=== PATIENT | female | born 1945 | race Two or more races ===

== ENCOUNTER 2017-03-19 09:31 | Day surgery (SDC) | payer MEDICARE, OTHER ==
--- NOTE | 2017-03-15 09:52 | Pre-Procedure Note/Attestation ---
Pre-Procedure Note/Attestation Complete Prior to Procedure Planned Procedure: bilateral Procedure Narrative: 1- Ptosis correction upper lids. 2- Entropion correction upper lids. 3-Blepharoplasty uppers lids. Indications for Procedure Pre-Operative Diagnosis: 1- Blepharoptosis upper lids 2-Entropion upper lids. 3-Blepharochalasis upper lids. Attestation I attest that I discussed the nature of the procedure; its benefits; risks and complications; and alternatives (and the risks and benefits of such alternatives ), prior to the procedure, with the patient (or the patient's legal accounts receivable representative). I attest that, if there was a reasonable possibility of needing a blood transfusion, the patient (or the patient's legal accounts receivable representative) was given the [facility] standardized written summary, pursuant to the Marvin Malachi Blood Safety Act ([place] Health and Safety Code # 1645, as amended). I attest that I re-evaluated the patient just prior to the surgery and that there has been no change in the patient's H&P, except as documented below: JOEY DURAND Mar 15, 2017 09:52
[~2017-03-19] VITALS: Ht 152.4 cm; Wt 68.0 kg
[2017-03-19] VITALS (9 sets, daily range): BP systolic 124–149; BP diastolic 71–85
[~2017-03-19 09:31] MED LIST: Akten 3.5% 1ml Btl BOTH EYES ONE; CALCIUM500 M2 PO; FISH OIL300 M1 PO; GLUCOSAMINE1000 M1 PO; Lidocaine 2% 20mg/ml/Epi 0.005mg/ml 20ml vial ONE; Maxitrol Opth Oint 3.5gm BOTH EYES ONE; NKM; Povidone-Iodine 5% opth solution ONE; VITAMIN B COMP1 EAC5 PO
[2017-03-19] MEDS ORDERED: Akten 3.5% 1ml Btl ONE (09:35)
[2017-03-19] MEDS ORDERED: MOVE FREE JOIN1 EACH PO (10:14)
[2017-03-19] MEDS ORDERED: VIT D PO (10:16)
[2017-03-19] MEDS ORDERED: VIT C PO (10:17)
[2017-03-19] MEDS ORDERED: LR 1000ml ONE (10:30)
[2017-03-19] MEDS ORDERED: Sterile Water Irrig 1000ml IRRIG ONE (10:30)
[2017-03-19] MEDS ORDERED: Midazolam 2mg/2ml Inj ONE (10:30)
[2017-03-19] MEDS ORDERED: NS Irrig 1000ml ONE (10:30)
[2017-03-19] MEDS ORDERED: fentaNYL 100 mcg/2 mL IV ONE (10:30)
[2017-03-19] MEDS ORDERED: LR 1000ml 1,000 ML IVLG SCH (10:46)
--- NOTE | 2017-03-19 10:54 | Anethesia Preoperative Eval ---
Anesthesia Pre-op PMH/ROS General Date of Evaluation: Mar 19, 2017 Time of Evaluation: 10:22 Anesthesiologist: Darion ASA Score: ASA 2 Mallampati Score Class I : Soft palate, uvula, fauces, pillars visible Class II: Soft palate, uvula, fauces visible Class III: Soft palate, base of uvula visible Class IV: Only hard plate visible Mallampati Classification: Class II Surgeon: Elysia Diagnosis: Bilateral ptosis Surgical Procedure: Bilateral upper Family History: no anesthesia problems Allergies: Coded Allergies: No Known Allergies (Unverified , 03/09/16) Medications: see eMAR Past Medical History Cardiovascular: Denies: HTN, CAD, PR, valve dz, arrhythmia, other Pulmonary: Denies: asthma, COPD, TEE, other Gastrointestinal/Genitourinary: Denies: GERD, CRI, ESRD, other Neurologic/Psychiatric: Denies: dementia, CVA, depression/anxiety, TIA, other Endocrine: Denies: DM, hypothyroidism, steroids, other HEENT: Denies: cataract (L), cataract (R), glaucoma, EMMONAK (L), EMMONAK (R), other Hematology/Immune: Denies: anemia, DVT, bleeding disorder, other Musculoskeletal/Integumentary: Denies: OA, RA, DJD, DDD, edema, other Other: obesity - Moderate PMH Narrative: Mild/moderate obesity PSxH Narrative: Bilateral cataract extraction, JILLIAN Anesthesia Pre-op Phys. Exam Physician Exam Last Vital Signs Date Time Temp Pulse Resp B/P (MAP) Pulse Ox O2 Delivery O2 Flow Rate FiO2 03/19/17 09:57 98.2 85 20 149/79 96 Room Air Constitutional: NAD Neurologic: CN 2-12 intact Cardiovascular: RRR, no M/R/G Respiratory: CTA Gastrointestinal: S/NT/ND Airway Exam Mallampati Score: Class II MO: full ROM: full Teeth: intact Anesthesia Pre-op A/P Labs WNL Studies Pre-op Studies: EKG - SR, Anterior and lateral TW abnormalities, echo - Normal , EF 65% Risk Assessment & Plan Assessment: Healthy moderately obese female for bilateral upper blepharoplasty Plan: MAC Status Change Before Surgery: No Pre-Antibiotics Drug: None LINUS MUHAMMAD M.D. Mar 19, 2017 10:54
--- NOTE | 2017-03-19 10:55 | Immediate Post-Op Evaluation ---
Immediate Post-Op Evalulation Immediate Post-Op Evalulation Procedure: Bilateral upper blepharoplasty Date of Evaluation: Mar 19, 2017 Time of Evaluation: 12:30 IV Fluids: 600 Blood Pressure Systolic: 131 Blood Pressure Diastolic: 73 Pulse Rate: 80 Respiratory Rate: 18 O2 Sat by Pulse Oximetry: 95 Temperature (Fahrenheit): 98.8 Pain Score (1-10): 0 Nausea: No Vomiting: No Complications No complication Patient Status: awake, patent, none Hydration Status: adequate Drug: None LINUS MUHAMMAD M.D. Mar 19, 2017 10:55
[2017-03-19] MEDS ORDERED: LR 1000ml 1,000 ML IV SCH (11:00)
[2017-03-19] MEDS ORDERED: fentaNYL 100 mcg/2 mL IV PRN (11:00)
--- NOTE | 2017-03-19 12:26 | 48 Hour Post Anesthesia Eval ---
Post Anesthesia Evaluation Procedure: Bilateral upper blepharoplasty Date of Evaluation: Mar 19, 2017 Time of Evaluation: 13:00 Blood Pressure Systolic: 133 0: 72 Pulse Rate: 81 Respiratory Rate: 20 O2 Sat by Pulse Oximetry: 95 Airway: patent Nausea: No Vomiting: No Pain Intensity: 0 Hydration Status: adequate Cardiopulmonary Status: Stable Mental Status/LOC: patient returned to baseline Follow-up Care/Observations: As per surgery Post-Anesthesia Complications: No anesthetic complication Follow-up care needed: N/A LINUS MUHAMMAD M.D. Mar 19, 2017 12:26
--- NOTE | 2017-03-19 12:30 | Discharge Summary ---
Discharge Summary Discharge Summary Discharge Summary DATE OF ADMISSION: 03/19/2017 DATE OF DISCHARGE: 03/19/2017 REASON FOR HOSPITALIZATION:1- Ptosis upper lids 2- Entropion upper lids 3- dermatochalasis upper lids SURGERY PERFORMED: 1- ptosis correction, upper lids 2- Entropion correction upper lids 3- blepharoplasty upper lids. CONDITION IN THE HOSPITAL:The patient tolerated the surgery without complications. DISCHARGE CONDITION: The patient was stable at discharge. DISCHARGE MEDICATIONS: 1. Tobradex eye drops one drop q.i.d, OU 2. Maxitrol eye ointment apply to lids b.i.d, OU 3. Keflex 500mg one PO q8h. 4- Narco 5mg/ 325mg tablet one pil q6h PRN per pain POSTOPERATIVE ORDERS: The patient has to rest at home. No bending, No lifting, No watching Television tonight. POSTOPERATIVE FOLLOW UP: The patient will be followed in my office tomorrow morning at 7 o'clock. JOEY DURAND Mar 19, 2017 12:30
--- NOTE | 2017-03-19 12:33 | Brief Operative Note ---
Immediate Post Operative Note Operative Note Chief Complaint: Droopy eyelids, dfficulty driving and reading Pre-op Diagnosis: 1- Blepharoptosis upper lids 2-Entropion upper lids. 3-Blepharochalasis upper lids. Procedure: 1- Ptsis correction, upper lids 2- Entropion correction, upper lids 3- Blepharoplasty, upper lids Post-op Diagnosis: same as pre-op Surgeon: Joey Naidu MD. Commercial Counsel: None Additional Surgeons: None Anesthesiologist: DR Law Anesthesia: local, MAC Specimen: none Complications: none Condition: stable Fluids: LR 500ml Estimated Blood Loss: none Drains: none Packing: None Implant(s) used?: JOEY Mcdonnell Mar 19, 2017 12:33
--- NOTE | 2017-03-20 10:45 | Operative Note - Dictated ---
DATE OF OPERATION: 03/19/2017 FACILITY: [facility]. SURGEON: Herb Naidu M.D. TIRE SERVICE SUPERVISOR: None. ANESTHESIOLOGIST: Marvin Orlando M.D. ANESTHESIA: Monitored anesthesia care (MAC). PREOPERATIVE DIAGNOSES: 1. Ptosis, upper lids. 2. Entropion, upper lids. 3. Dermatochalasis and blepharochalasis, upper lids. POSTOPERATIVE DIAGNOSES: 1. Ptosis, upper lids. 2. Entropion, upper lids. 3. Dermatochalasis and blepharochalasis, upper lids. SURGERY PERFORMED: 1. Ptosis correction, upper lids. 2. Entropion correction, upper lids. 3. Blepharoplasty, upper lids bilaterally. INDICATION FOR THE SURGERY: The patient is a 71-year-old lady with history of hypertension, osteoarthritis, rheumatoid heart disease, obesity, gastroesophageal reflux disease, postmenopausal syndrome, and hyperlipidemia. She is taking medications Diovan and pain medications. She is complaining of droopy eyelids. She has had cataract surgery in both eyes and she is happy with the results. Now, she is complaining of blurry vision, droopy eyelids, difficulty driving because of upper lid droopiness. She is suffering from severe blepharochalasis and ptosis and entropion in the upper lids. This is a progressive dermatochalasis skin disease, which result in change of corneal curvature, which is a mix of astigmatism and cover the visual axis, which leads to interruption for driving. The severity of the patient's dermatochalasis, ptosis, and entropion is clearly demonstrated on enclosed photos and the patient's visual galloway. The only solution for this patient is correction of all those disfigurement and anatomy changes with surgery. INFORMED CONSENT: The nature of the surgery, risks, benefits, alternatives, and potential complications were all explained to the patient in detail in her language, Farsi. She voiced understanding and accepted all the complications. The potential complications including, but not limited to bleeding, infection, corneal exposure, overcorrection, undercorrection, ecchymosis, swelling of the face, hematoma, dry eye syndrome, loss of eyelashes, loss of eyebrows, inequality of both eyes, change in vision, even loss of vision, and loss of the eye were all explained in detail to the patient, who voiced understanding and accepted all the complications. Then, she signed a consent form, which is in the chart. Description Of Surgery And Findings: Following that, the patient was taken to the operation room in a stable condition. A lidocaine gel Akten 3.5% was applied to the conjunctiva of both eyes. Following that, upper lids were marked with a marking pen 10 mm above the root of the eyelashes and 15 mm below the lower part of the eyebrows. About 25 mm of the skin was left to facilitate eye closure. IV sedation was given by the anesthesiologist, Dr. Orlando. After adequate anesthesia and sedation had been achieved, the upper eyelids and eyebrows were all anesthetized with 2% lidocaine with epinephrine 1:100,000. Following that, using a Bovie knife, the skin and subdermal tissue were dissected from the orbicularis oculi muscle and excised. A cut was made into the orbicularis oculi muscle. Hemostasis was performed. The two fat compartments were released. The fat compartments were sculptured conservatively. Following that, the levator palpebrae superioris muscle were dissected to the aponeurosis of the muscle and aponeurosis of the muscle was tacked about 6 mm and stitched with 6-0 Vicryl bilaterally and then the sutures were trimmed and hemostasis was performed. Following that, a wedge groove was made 3 mm above the root of the eyelids and lashes. Following that, tarsal material inside the groove was excised with the Vannas scissor. Following that, the lids of the groove was stitched with 6-0 Vicryl and both the eyelid borders rotated upwards and lashes were turned from downwards to upwards. Following that, the orbicularis oculi muscle was then stitched with 6-0 Vicryl. Following that, rotation was performed. Following that, the skin was stitched in the fashion of continuous running 6-0 plain gut. The patient tolerated the surgery without complications. At the end of the surgery, TobraDex ointment was applied to the eyelids Following that, the patient was transferred to the recovery room. In the recovery room, cold compresses were applied to the wounds. The wound was checked for bleeding and there was no bleeding. Postoperative orders were given to the patient. The patient will be discharged home upon stabilization. The patient will be followed in my office tomorrow morning. Herb Naidu M.D. DR: Cole JOB#: [id number] CC:
--- NOTE | 2017-03-23 12:56 | Cardiology Report ---
APPROVED REPORT EKG Measurement Heart [id number] [place] [id number] Normal sinus rhythm Abnormal ECG
--- NOTE | 2017-03-26 10:15 | Pre-op HX & Phy Repo 2 SIG ---
DATE OF ADMISSION: 03/19/2017 REASON FOR EVALUATION: I was asked by Dr. Herb Naidu to see this 71-year-old female, who is going for elective surgery on both eyes. The patient has bilateral ptosis. Please see full Ophthalmology History and Physical by Dr. Herb Naidu. The patient was examined. Chart was reviewed. PAST MEDICAL HISTORY: Remarkable for GERD. Denies history of chest pain, palpitation, or heart attack. The patient is on lavatory attendant observation and has a cardiology clearance in the chart. Denies history of hypertension or diabetes. No history of respiratory problem. No stroke or seizures. Denies history of renal insufficiency. No anemia or thyroid problem. No history of hepatitis. PAST SURGICAL HISTORY: Cataract surgery a year ago. ALLERGIES: Not known. CURRENT MEDICATIONS: Include vitamin D, calcium supplement, omega-3 fish oil, and supplement lepr-pzq-capmyam medication. HABITS: Smoked untill 15 years ago. Denies alcohol or street drug use. FAMILY HISTORY: Mother has hypertension. Father of old age. PHYSICAL EXAMINATION: GENERAL: Alert and overweight female in her 70s. obtained initially at bedside. The patient's BMI is 30.1. VITAL SIGNS: Blood pressure 199/79, temperature 98.2 degrees, pulse 85, and O2 saturation 96% on room air. SKIN: Warm, pale, and dry. No rashes. LYMPHATICS: Lymph nodes not enlarged. HEENT: Head, normocephalic. Ears, clear. Eyes, full description per Dr. Herb Naidu. Mouth, clear and moist. No dentures. No discharge. NECK: Supple. No jugular vein distention. Carotids artery +2. Trachea midline. CHEST: No deformity or asymmetry. LUNGS: Clear to auscultation and percussion. HEART: Heart sounds distant. No murmur. No S3 or S4. ABDOMEN: Soft, obese. No palpable mass. No rebound. EXTREMITIES: No calf tenderness or varicose veins. A +1 ankle edema. GENITOURINARY: No dysuria. No CVA tenderness. NEUROLOGIC: No tremor. No nystagmus. LABORATORY AND DIAGNOSTIC DATA: ECG, normal sinus rhythm, 82 per minute, ST-T wave abnormality, consider anterior wall ischemia. Laboratory work pending. The patient did not eat or drink from last night. IMPRESSION: 1. Bilateral ptosis. 2. Gastroesophageal reflux disease. 3. Hypertension, untreated. 4. Degenerative joint disease. 5. Anterior wall ischemia. 6. ST-T wave abnormality on EKG. PLAN: Blepharoplasty per Dr. Herb Naidu bilaterally. I recommended to follow up primary care physician for blood pressure elevation. The patient did not eat or drink from last night. The patient's condition optimized for surgery. Joo Munguia M.D. DR: MANDY JOB#: [id number] CC:
== END 2017-03-19 14:00 | disposition home or self-care (01) ==
LOC: SUR 09:31
DX: H02.403 Unspecified ptosis of bilateral eyelids (principal); H02.034 Senile entropion of left upper eyelid; H02.031 Senile entropion of right upper eyelid; H02.834 Dermatochalasis of left upper eyelid; H02.831 Dermatochalasis of right upper eyelid; I10 Essential (primary) hypertension; M19.90 Unspecified osteoarthritis, unspecified site; I09.9 Rheumatic heart disease, unspecified; N95.8 Other specified menopausal and perimenopausal disorders; E78.5 Hyperlipidemia, unspecified; E66.9 Obesity, unspecified; Z68.30 Body mass index [BMI] 30.0-30.9, adult; K21.9 Gastro-esophageal reflux disease without esophagitis
CPT/HCPCS: 15823; 67924; 93005; J2250; J3010; J7120; 94003; 94150